=== PATIENT | male | born 1960 | race Caucasian/White ===

== ENCOUNTER 2016-05-12 09:26 | Emergency (ER) | payer OTHER ==
[~2016-05-12] VITALS: Ht 182.9 cm; Wt 126.3 kg
[~2016-05-12 09:26] MED LIST: ABILIFY20 MG PO; ABILIFY5 MG PO; ADVAIR HFA120 INHALA IH; AMLODIPINE BESYL5 MG PO; ASPIR-LOW81 MG PO; ATIVAN1 MG PO; BENZTROPINE MESY2 MG PO; CARDIZEM CD,CA180 MG PO; CLONAZEPAM1 MG; CLONAZEPAM1 MG PO; CLONIDINE HCL0.2 MG PO; DEPAKOTE ER500 MG PO; DEPAKOTE500 MG PO; DIVALPROEX SOD500 M1 PO; DIVALPROEX SOD500 MG PO; FENOFIBRATE54 M1 PO; FUROSEMIDE80 MG PO; GUAIFENESIN WI120 M1 PO; KLONOPIN1 MG PO; LASIX20 MG PO; LASIX40 MG PO; LEVAQUIN750 MG PO; LIPITOR40 MG PO; LISINOPRIL5 MG PO; LITHIUM CARBON300 M2 PO; LOVASTATIN20 MG PO; METFORMIN HCL1000 MG PO; METFORMIN HCL500 MG PO; NICOTINE PATCH1 EAC2 TD; NORVASC5 MG PO; NYSTATIN15 GM TP; OXYCODONE HCL5 M1 PO; OXYCODONE5 MG PO; PAXIL20 MG PO; PAXIL40 MG PO; PREDNISONE10 MG PO; PRINIVIL5 MG PO; PROAIR HFA8.5 GM IH; RISPERDAL4 MG PO; RISPERIDONE4 MG PO; SPIRIVA RESPIMAT4 GM IH; SPIRIVA1 INHALATI IH; WELLBUTRIN SR100 MG PO; WELLBUTRIN100 MG PO; XARELTO20 MG PO; ZESTRIL,PRINIVI10 MG PO; [UNRECOGNIZED DRUG - REMARK]; statin PO
[2016-05-12 09:27] VITALS: BP 148/80
[2016-05-12] MEDS ORDERED: PERCOCET 5/31 TABLET PO (12:35)
== END 2016-05-12 16:57 | disposition home or self-care (01) ==
LOC: EME 09:26
DX: S82.142A Displaced bicondylar fracture of left tibia, initial encounter for closed fracture (principal); W01.198A Fall on same level from slipping, tripping and stumbling with subsequent striking against other object, initial encounter; R05 Cough; J44.9 Chronic obstructive pulmonary disease, unspecified; F17.200 Nicotine dependence, unspecified, uncomplicated
CPT/HCPCS: 71020; 73564; 73700; 99281; 99284

== ENCOUNTER 2016-09-30 00:01 | Emergency (ER) | payer OTHER ==
[~2016-09-30] VITALS: Ht 180.3 cm; Wt 126.2 kg
[~2016-09-30 00:01] MED LIST changes: +PERCOCET 5/31 TABLET PO
[2016-09-30] MEDS ORDERED: NORCO 5/3251 TABLET PO (01:31)
[2016-09-30 02:02] VITALS: BP 126/76
== END 2016-09-30 02:03 | disposition home or self-care (01) ==
LOC: EME 00:01
PROC: 0RSKXZZ Reposition Left Shoulder Joint, External Approach (ICD-10-PCS; principal; 2016-09-30)
DX: S43.005A Unspecified dislocation of left shoulder joint, initial encounter (principal); W06.XXXA Fall from bed, initial encounter; E11.9 Type 2 diabetes mellitus without complications; J44.9 Chronic obstructive pulmonary disease, unspecified; I10 Essential (primary) hypertension; I25.2 Old myocardial infarction; K21.9 Gastro-esophageal reflux disease without esophagitis; Z86.73 Personal history of transient ischemic attack (TIA), and cerebral infarction without residual deficits; F17.200 Nicotine dependence, unspecified, uncomplicated
CPT/HCPCS: 73030; 99281; 99284; J2270; J2405

== ENCOUNTER 2016-10-03 17:35 | Inpatient (IN) | payer OTHER ==
[~2016-10-03] VITALS: Ht 182.9 cm; Wt 131.3 kg
[~2016-10-03 17:35] MED LIST changes: +NORCO 5/3251 TABLET PO
[2016-10-03 18:10] LABS: BASOPHIL COUNT 0.1 K/uL (0-0.1); EOSINOPHIL (%) 1.7 % (0-5); EOSINOPHIL COUNT 0.2 K/uL (0-0.3); HEMATOCRIT 46.7 % (38.0-50.0); IMMATURE GRANULOCYTE (%) 0.4 % (0.0-0.7); INSTRUMENT ABS NEUTROPHIL CT 7.2 K/uL; LYMPHOCYTE COUNT 2.8 K/uL (1.0-2.8); MCH 31.1 PG (29.0-34.0); MCHC 33.8 G/DL (30.0-36.0); MCV 91.9 FL (86-99); MEAN PLAT.VOLUME 9.1 uM^3 (9.0-12.4); MONOCYTE (%) 9.8 % (3-12); MONOCYTE COUNT 1.1 K/uL (0-0.8); NEUTROPHIL (%) 62.9 % (45-76); NEUTROPHIL COUNT 7.2 K/uL (1.8-6.4); PLATELET COUNT 243 K/uL (156-360); RBC DIS.WIDTH-CV 13.3 % (11.8-14.6); RBC DIS.WIDTH-SD 45.2 % (39-53); RED BLOOD COUNT 5.08 M/uL (4.00-5.50); WHITE BLOOD COUNT 11.4 K/uL (4.1-10.2)
[2016-10-03 18:15] LABS: CHLORIDE 102 mEq/L (99-109); POTASSIUM 3.8 mEq/L (3.7-5.4); SODIUM 138 mEq/L (136-147)
[2016-10-03 18:17] LABS: GLUCOSE 200 mg/dL (70-99)
[2016-10-03 18:18] LABS: ANION GAP 15 MEQ/L (2-14)
[2016-10-03 18:20] LABS: GFR ESTIMATE (CALCULATED) > 59 mL/min/; SERUM ETHYL ALCOHOL 259 mg/dL
[2016-10-03 18:21] LABS: UREA NITROGEN (BUN) 14 mg/dL (9-23)
[2016-10-03 18:25] LABS: TROP-I INTERPRETATION NEGATIVE; TROPONIN-I 0.01 ng/mL (0.0-0.30)
[2016-10-03 23:54] VITALS: BP 106/55
[2016-10-04 01:24] LABS: TROP-I INTERPRETATION NEGATIVE; TROPONIN-I 0.01 ng/mL (0.0-0.30)
[2016-10-04 04:34] VITALS: BP 107/58
[2016-10-04 07:45] LABS: HEMATOCRIT 44.7 % (38.0-50.0); MCHC 34.5 G/DL (30.0-36.0); MCV 92.9 FL (86-99); MEAN PLAT.VOLUME 9.6 uM^3 (9.0-12.4); PLATELET COUNT 232 K/uL (156-360); RBC DIS.WIDTH-CV 13.8 % (11.8-14.6); RBC DIS.WIDTH-SD 46.6 % (39-53); RED BLOOD COUNT 4.81 M/uL (4.00-5.50); WHITE BLOOD COUNT 8.4 K/uL (4.1-10.2)
[2016-10-04 07:58] LABS: INTER. NORMALIZED RATIO 1.1; PROTHROMBIN TIME 11.1 (9.2-11.2)
[2016-10-04 08:11] LABS: ALKALINE PHOSPHATASE 78 IU/L (3-129); ANION GAP 6 MEQ/L (2-14); CHLORIDE 108 MEQ/L (99-109); GFR ESTIMATE (CALCULATED) > 59 mL/min/; GLUCOSE 153 mg/dL (70-99); POTASSIUM 4.3 MEQ/L (3.7-5.4); SAMPLE HEMOLYSIS CHECK 0; SAMPLE ICTERIC CHECK 0; SAMPLE LIPEMIA CHECK 0; SODIUM 141 MEQ/L (136-147); TOTAL BILIRUBIN 0.5 MG/DL (0.0-1.0); UREA NITROGEN (BUN) 11 mg/dL (9-23)
[2016-10-04 08:27] VITALS: BP 134/77
[2016-10-04 08:56] LABS: TROP-I INTERPRETATION NEGATIVE; TROPONIN-I 0.01 ng/mL (0.0-0.30)
[2016-10-04] MEDS ORDERED: LISINOPRIL10 MG PO (09:57)
[2016-10-04] MEDS ORDERED: PROZAC40 MG PO (09:58)
[2016-10-04] MEDS ORDERED: DESYREL100 MG PO (09:59)
[2016-10-04 11:22] VITALS: BP 151/67
[2016-10-04 15:14] VITALS: BP 141/79
[2016-10-04] MEDS ORDERED: SPIRIVA RESPIMAT4 GM IH (16:59)
[2016-10-04] MEDS ORDERED: PROAIR HFA8.5 GM IH (17:00)
[2016-10-04 19:15] VITALS: BP 151/83
[2016-10-04 23:00] VITALS: BP 130/75
[2016-10-05 03:30] VITALS: BP 138/88
[2016-10-05 05:54] LABS: ANION GAP 10 MEQ/L (2-14); CHLORIDE 105 MEQ/L (99-109); GFR ESTIMATE (CALCULATED) > 59 mL/min/; GLUCOSE 139 mg/dL (70-99); MAGNESIUM 1.9 mg/dl (1.3-2.7); POTASSIUM 3.9 MEQ/L (3.7-5.4); SAMPLE HEMOLYSIS CHECK 0; SAMPLE ICTERIC CHECK 0; SAMPLE LIPEMIA CHECK 0; SODIUM 140 MEQ/L (136-147); UREA NITROGEN (BUN) 9 mg/dL (9-23)
[2016-10-05 08:17] VITALS: BP 176/97
[2016-10-05 11:37] VITALS: BP 126/72
[2016-10-05] MEDS ORDERED: THERAGRAN1 TABLET PO (13:17)
[2016-10-05] MEDS ORDERED: FOLIC ACID1 MG PO (13:17)
[2016-10-05] MEDS ORDERED: Thiamine,Vitamin B1 PO (13:19)
[2016-10-05] MEDS ORDERED: XARELTO20 MG PO (13:19)
[2016-10-05] MEDS ORDERED: LISINOPRIL2.5 MG PO (13:33)
[2016-10-05] MEDS ORDERED: CARDIZEM30 MG PO (13:34)
== END 2016-10-05 16:51 | disposition home or self-care (01) | DRG 309 ==
LOC: EME 17:35 → 4EAST 22:11 → EDOF 22:11 → 4EAST 23:22
PROVIDERS: Emergency Medicine; Internal Medicine; Internal Medicine Cardiovascular Disease
PROC: HZ2ZZZZ Detoxification Services for Substance Abuse Treatment (ICD-10-PCS; 2016-10-03)
PROC: 5A2204Z Restoration of Cardiac Rhythm, Single (ICD-10-PCS; principal; 2016-10-05)
DX: I47.1 Supraventricular tachycardia (principal); R45.851 Suicidal ideations; I50.32 Chronic diastolic (congestive) heart failure; J44.1 Chronic obstructive pulmonary disease with (acute) exacerbation; F31.30 Bipolar disorder, current episode depressed, mild or moderate severity, unspecified; I48.92 Unspecified atrial flutter; I48.91 Unspecified atrial fibrillation; F10.229 Alcohol dependence with intoxication, unspecified; Y90.8 Blood alcohol level of 240 mg/100 ml or more; E11.9 Type 2 diabetes mellitus without complications; F17.210 Nicotine dependence, cigarettes, uncomplicated; F31.9 Bipolar disorder, unspecified; F41.9 Anxiety disorder, unspecified; F60.9 Personality disorder, unspecified; Z60.2 Problems related to living alone; G89.4 Chronic pain syndrome; I11.0 Hypertensive heart disease with heart failure; I25.10 Atherosclerotic heart disease of native coronary artery without angina pectoris; K21.9 Gastro-esophageal reflux disease without esophagitis; E66.9 Obesity, unspecified; I36.1 Nonrheumatic tricuspid (valve) insufficiency; I35.1 Nonrheumatic aortic (valve) insufficiency; I34.0 Nonrheumatic mitral (valve) insufficiency; S43.015A Anterior dislocation of left humerus, initial encounter; W19.XXXA Unspecified fall, initial encounter; Y92.89 Other specified places as the place of occurrence of the external cause; Z91.19 Patient's noncompliance with other medical treatment and regimen; Z91.14 Patient's other noncompliance with medication regimen; Z68.39 Body mass index [BMI] 39.0-39.9, adult; I25.2 Old myocardial infarction; Z91.81 History of falling
CPT/HCPCS: 71010; 80048; 80048 91; 80053; 83735; 83880; 84484; 85025; 85027; 85610; 93005; 93306; 94640; 94640 76; 94799; 99202; G0480; J0153; J2060; J2250; J3475; J7030; J7042; J7050

== ENCOUNTER 2016-12-06 23:43 | Inpatient (IN) | payer OTHER ==
[~2016-12-06] VITALS: Ht 182.9 cm; Wt 129.2 kg
[~2016-12-06 23:43] MED LIST changes: +CARDIZEM30 MG PO; +DESYREL100 MG PO; +FOLIC ACID1 MG PO; +LISINOPRIL10 MG PO; +LISINOPRIL2.5 MG PO; +PROZAC40 MG PO; +THERAGRAN1 TABLET PO; +Thiamine,Vitamin B1 PO
[2016-12-07 00:28] LABS: EOSINOPHIL (%) 3.1 % (0-5); EOSINOPHIL COUNT 0.3 K/uL (0-0.3); HEMATOCRIT 43.9 % (38.0-50.0); IMMATURE GRANULOCYTE (%) 0.6 % (0.0-0.7); IMMATURE GRANULOCYTE COUNT 0.1 K/uL; INSTRUMENT ABS NEUTROPHIL CT 4.7 K/uL; LYMPHOCYTE COUNT 2.3 K/uL (1.0-2.8); MCH 31.3 PG (29.0-34.0); MCHC 34.4 G/DL (30.0-36.0); MCV 91.1 FL (86-99); MEAN PLAT.VOLUME 9.4 uM^3 (9.0-12.4); MONOCYTE (%) 10.1 % (3-12); MONOCYTE COUNT 0.8 K/uL (0-0.8); NEUTROPHIL (%) 57.3 % (45-76); NEUTROPHIL COUNT 4.7 K/uL (1.8-6.4); PLATELET COUNT 211 K/uL (156-360); RBC DIS.WIDTH-CV 13.4 % (11.8-14.6); RBC DIS.WIDTH-SD 45.1 % (39-53); RED BLOOD COUNT 4.82 M/uL (4.00-5.50); WHITE BLOOD COUNT 8.2 K/uL (4.1-10.2)
[2016-12-07 01:00] LABS: CHLORIDE 101 mEq/L (99-109); POTASSIUM 4.2 mEq/L (3.7-5.4); SODIUM 136 mEq/L (136-147)
[2016-12-07 01:02] LABS: GLUCOSE 201 mg/dL (70-99)
[2016-12-07 01:03] LABS: ANION GAP 16 MEQ/L (2-14)
[2016-12-07 01:06] LABS: GFR ESTIMATE (CALCULATED) > 59 mL/min/
[2016-12-07 01:07] LABS: UREA NITROGEN (BUN) 11 mg/dL (9-23)
[2016-12-07 01:10] LABS: TROP-I INTERPRETATION NEGATIVE; TROPONIN-I 0.02 ng/mL (0.0-0.30)
[2016-12-07] MEDS ORDERED: AMBIEN10 MG PO (05:03)
[2016-12-07 06:58] LABS: INTER. NORMALIZED RATIO 1.1; PROTHROMBIN TIME 11.9 SEC (10.2-12.9)
[2016-12-07 07:00] LABS: PTT 29.2 SEC (25-37)
[2016-12-07 07:51] LABS: TROP-I INTERPRETATION NEGATIVE; TROPONIN-I 0.03 ng/mL (0.0-0.30)
[2016-12-07 08:46] VITALS: BP 154/74
[2016-12-07] MEDS ORDERED: GLUCOPHAGE500 MG PO (09:15)
[2016-12-07 11:42] VITALS: BP 145/69
[2016-12-07 16:58] VITALS: BP 138/86
[2016-12-07 19:23] VITALS: BP 144/67
[2016-12-08] VITALS: BP 164/74
[2016-12-08 05:02] VITALS: BP 169/76
[2016-12-08 06:56] LABS: HEMATOCRIT 47.3 % (38.0-50.0); MCH 31.7 PG (29.0-34.0); MCV 93.1 FL (86-99); MEAN PLAT.VOLUME 9.7 uM^3 (9.0-12.4); PLATELET COUNT 209 K/uL (156-360); RBC DIS.WIDTH-CV 13.4 % (11.8-14.6); RED BLOOD COUNT 5.08 M/uL (4.00-5.50); WHITE BLOOD COUNT 12.7 K/uL (4.1-10.2)
[2016-12-08 07:23] LABS: TROP-I INTERPRETATION NEGATIVE; TROPONIN-I 0.01 ng/mL (0.0-0.30)
[2016-12-08 07:24] LABS: ANION GAP 9 MEQ/L (2-14); CHLORIDE 100 MEQ/L (99-109); GFR ESTIMATE (CALCULATED) > 59 mL/min/; GLUCOSE 245 mg/dL (70-99); SAMPLE HEMOLYSIS CHECK 0; SAMPLE ICTERIC CHECK 0; SAMPLE LIPEMIA CHECK 0; SODIUM 136 MEQ/L (136-147); UREA NITROGEN (BUN) 15 mg/dL (9-23)
[2016-12-08 07:25] LABS: POTASSIUM 5.4 MEQ/L (3.7-5.4)
[2016-12-08 07:30] VITALS: BP 166/74
[2016-12-08 09:55] LABS: ALKALINE PHOSPHATASE 76 IU/L (3-129); DIRECT BILIRUBIN 0.1 mg/dL (0.0-0.3); TOTAL BILIRUBIN 0.5 MG/DL (0.0-1.0)
[2016-12-08 11:47] VITALS: BP 169/73
[2016-12-08 15:00] VITALS: BP 143/69
[2016-12-08 20:50] VITALS: BP 142/68
[2016-12-09] VITALS (7 sets, daily range): BP systolic 124–161; BP diastolic 61–81
[2016-12-09 06:21] LABS: HEMATOCRIT 44.9 % (38.0-50.0); MCH 31.8 PG (29.0-34.0); MCHC 34.3 G/DL (30.0-36.0); MCV 92.8 FL (86-99); MEAN PLAT.VOLUME 9.8 uM^3 (9.0-12.4); PLATELET COUNT 209 K/uL (156-360); RBC DIS.WIDTH-CV 13.7 % (11.8-14.6); RBC DIS.WIDTH-SD 46.3 % (39-53); RED BLOOD COUNT 4.84 M/uL (4.00-5.50); WHITE BLOOD COUNT 16.3 K/uL (4.1-10.2)
[2016-12-09 06:42] LABS: ANION GAP 11 MEQ/L (2-14); CHLORIDE 100 MEQ/L (99-109); GFR ESTIMATE (CALCULATED) > 59 mL/min/; GLUCOSE 248 mg/dL (70-99); POTASSIUM 4.6 MEQ/L (3.7-5.4); SAMPLE HEMOLYSIS CHECK 0; SAMPLE ICTERIC CHECK 0; SAMPLE LIPEMIA CHECK 0; SODIUM 136 MEQ/L (136-147); UREA NITROGEN (BUN) 21 mg/dL (9-23)
[2016-12-09] MEDS ORDERED: LEVALBUTER1.25 MG/0. IH (08:48)
[2016-12-09] MEDS ORDERED: SPIRIVA1 INHALATI IH (08:48)
[2016-12-09] MEDS ORDERED: ADVAIR HFA120 INHALA IH (08:52)
[2016-12-09 11:52] LABS: POINT-OF-CARE METER ID UU13113698
[2016-12-09 14:43] LABS: Estimated Average Glucose 163 mg/dL (70-123); HEMOGLOBIN A1c (GLYCOHEMOGLOB) 7.3 % HGB (Below 5.7)
[2016-12-09 16:20] LABS: POINT-OF-CARE METER ID UU13113698
[2016-12-10 05:03] VITALS: BP 120/60
[2016-12-10 06:09] LABS: HEMATOCRIT 44.9 % (38.0-50.0); MCH 32.2 PG (29.0-34.0); MCHC 34.3 G/DL (30.0-36.0); MCV 93.7 FL (86-99); MEAN PLAT.VOLUME 9.7 uM^3 (9.0-12.4); PLATELET COUNT 185 K/uL (156-360); RBC DIS.WIDTH-CV 14.1 % (11.8-14.6); RBC DIS.WIDTH-SD 48.5 % (39-53); RED BLOOD COUNT 4.79 M/uL (4.00-5.50); WHITE BLOOD COUNT 14.7 K/uL (4.1-10.2)
[2016-12-10] MEDS ORDERED: PREDNISONE20 MG PO (08:41)
[2016-12-10] MEDS ORDERED: LIDOCAINE1 EACH TD (08:41)
[2016-12-10] MEDS ORDERED: NAPROXEN500 MG PO (08:41)
[2016-12-10] MEDS ORDERED: GABAPENTIN300 MG PO (08:41)
[2016-12-10] MEDS ORDERED: LISINOPRIL20 MG PO (08:41)
[2016-12-10] MEDS ORDERED: DILTIAZEM 24HR120 MG PO (08:41)
[2016-12-10] MEDS ORDERED: CHLORDIAZEPOXID25 MG PO (08:41)
[2016-12-10] MEDS ORDERED: CEFDINIR300 MG PO (08:41)
[2016-12-10 09:00] VITALS: BP 135/62
[2016-12-10 12:00] VITALS: BP 148/68
== END 2016-12-10 14:01 | disposition home or self-care (01) | DRG 191 ==
LOC: EME → EDBD 23:43 → EME 23:43 → 4EAST 12-07 06:29 → EDOF 12-07 06:29 → ENRESERV 12-07 06:32 → 4EAST 12-07 08:15
PROVIDERS: Emergency Medicine; Hospitalist; Internal Medicine
DX: J44.0 Chronic obstructive pulmonary disease with (acute) lower respiratory infection (principal); I47.1 Supraventricular tachycardia; E66.01 Morbid (severe) obesity due to excess calories; I48.0 Paroxysmal atrial fibrillation; I95.9 Hypotension, unspecified; I11.0 Hypertensive heart disease with heart failure; I50.9 Heart failure, unspecified; F31.9 Bipolar disorder, unspecified; E11.9 Type 2 diabetes mellitus without complications; F10.239 Alcohol dependence with withdrawal, unspecified; F17.210 Nicotine dependence, cigarettes, uncomplicated; J20.9 Acute bronchitis, unspecified; F10.20 Alcohol dependence, uncomplicated; K21.9 Gastro-esophageal reflux disease without esophagitis; F41.9 Anxiety disorder, unspecified; G89.4 Chronic pain syndrome; J98.11 Atelectasis; G47.30 Sleep apnea, unspecified; M47.816 Spondylosis without myelopathy or radiculopathy, lumbar region; Z99.81 Dependence on supplemental oxygen; I25.2 Old myocardial infarction; Z68.39 Body mass index [BMI] 39.0-39.9, adult; Z79.899 Other long term (current) drug therapy; Z91.81 History of falling
CPT/HCPCS: 71010; 71020; 80048; 80076; 82948; 83036; 83880; 84484; 85025; 85027; 85610; 85730; 93005; 94640; 94640 76; 94760; 94799; 99202; 99281; 99285; J0153; J0696; J1650; J1815; J2060; J2920; J3475; J7030; J7050; J7512; S0028

== ENCOUNTER 2017-01-27 21:04 | Emergency (ER) | payer OTHER ==
[~2017-01-27] VITALS: Ht 182.9 cm; Wt 124.4 kg
[~2017-01-27 21:04] MED LIST changes: +AMBIEN10 MG PO; +CEFDINIR300 MG PO; +CHLORDIAZEPOXID25 MG PO; +DILTIAZEM 24HR120 MG PO; +GABAPENTIN300 MG PO; +GLUCOPHAGE500 MG PO; +LEVALBUTER1.25 MG/0. IH; +LIDOCAINE1 EACH TD; +LISINOPRIL20 MG PO; +NAPROXEN500 MG PO; +PREDNISONE20 MG PO
[2017-01-27] MEDS ORDERED: NORCO 5/3251 TABLET PO (22:37)
[2017-01-27 23:19] VITALS: BP 159/61
== END 2017-01-27 23:56 | disposition home or self-care (01) ==
LOC: EME → EDBD 21:04 → EME 23:56
PROC: 0RSKXZZ Reposition Left Shoulder Joint, External Approach (ICD-10-PCS; principal; 2017-01-27)
DX: S43.015A Anterior dislocation of left humerus, initial encounter (principal); W01.198A Fall on same level from slipping, tripping and stumbling with subsequent striking against other object, initial encounter; I25.2 Old myocardial infarction; K21.9 Gastro-esophageal reflux disease without esophagitis; J44.9 Chronic obstructive pulmonary disease, unspecified; F41.9 Anxiety disorder, unspecified; I10 Essential (primary) hypertension; E11.9 Type 2 diabetes mellitus without complications; F31.9 Bipolar disorder, unspecified; Z79.84 Long term (current) use of oral hypoglycemic drugs; F17.200 Nicotine dependence, unspecified, uncomplicated; E78.5 Hyperlipidemia, unspecified
CPT/HCPCS: 73020; 73030; 99281; 99285; J1885; S0028

== ENCOUNTER 2017-09-08 19:35 | Inpatient (IN) | payer OTHER ==
[~2017-09-08] VITALS: Ht 182.9 cm; Wt 130.6 kg
[2017-09-08 20:04] LABS: BASE EXCESS -2.9 mEq/L (-3 to +3); BICARBONATE 22.6 mEq/L (22-26); CARBOXY HGB 5.2 % (0-5); COMMENTS - BLOOD GASES C+; DEVICE NC; METHEMOGLOBIN 0.3 % (0-1.5); O2 FLOW 2.5 L/MIN; PCO2 41 mm Hg (35-45); PO2 88 mm Hg (80-100); SITE RR; TOTAL RESP RATE 20 resp/min; pH 7.35 (7.35-7.45)
[2017-09-08 20:11] LABS: HEMATOCRIT 43.9 % (38.0-50.0); HEMOGLOBIN 14.8 G/DL (12.5-16.6); MCH 31.2 PG (29.0-34.0); MCHC 33.7 G/DL (30.0-36.0); MCV 92.6 FL (86-99); PLATELET COUNT 201 K/uL (156-360); RBC DIS.WIDTH-CV 14.5 % (11.8-14.6); RED BLOOD COUNT 4.74 M/uL (4.00-5.50); WHITE BLOOD COUNT 8.2 K/uL (4.1-10.2)
[2017-09-08 20:19] LABS: ALBUMIN 3.8 g/dL (3.2-4.8); CHLORIDE 101 mEq/L (99-109); POTASSIUM 4.1 mEq/L (3.7-5.4); SODIUM 137 mEq/L (136-147)
[2017-09-08 20:20] LABS: PTT 30.1 SEC (25-37)
[2017-09-08 20:21] LABS: GLUCOSE 210 mg/dL (70-99); TOTAL PROTEIN 6.6 g/dL (6.4-8.3)
[2017-09-08 20:23] LABS: TOTAL BILIRUBIN 0.2 mg/dL (0.0-1.0)
[2017-09-08 20:24] LABS: SERUM ETHYL ALCOHOL 30 mg/dL
[2017-09-08 20:25] LABS: ALKALINE PHOSPHATASE 79 IU/L (3-129); GFR ESTIMATE (CALCULATED) > 59 mL/min/ (58.99-99999)
[2017-09-08 20:26] LABS: UREA NITROGEN (BUN) 17 mg/dL (9-23)
[2017-09-08 20:27] LABS: AST (GOT) 19 IU/L (2-34)
[2017-09-08 20:28] LABS: ALT (GPT) 23 IU/L (3-49)
[2017-09-08 20:31] LABS: TROP-I INTERPRETATION NEGATIVE; TROPONIN-I < 0.01 ng/mL (0.0-0.30)
[2017-09-08] MEDS ORDERED: XOPENEX0.31 MG/3 IH (22:11)
[2017-09-08] MEDS ORDERED: ZESTRIL20 MG PO (22:12)
[2017-09-08] MEDS ORDERED: SPIRIVA18 MCG IH (22:13)
[2017-09-08] MEDS ORDERED: INHALER (22:14)
[2017-09-08] MEDS ORDERED: LO-DOSE ASPIRIN81 M1 PO (22:14)
[2017-09-09] VITALS (7 sets, daily range): BP systolic 117–177; BP diastolic 61–80
[2017-09-09 05:31] LABS: TROP-I INTERPRETATION NEGATIVE; TROPONIN-I 0.03 ng/mL (0.0-0.30)
[2017-09-09 09:21] LABS: HEMATOCRIT 45.5 % (38.0-50.0); HEMOGLOBIN 14.9 G/DL (12.5-16.6); MCH 30.2 PG (29.0-34.0); MCHC 32.7 G/DL (30.0-36.0); MCV 92.1 FL (86-99); PLATELET COUNT 202 K/uL (156-360); RBC DIS.WIDTH-CV 14.3 % (11.8-14.6); RED BLOOD COUNT 4.94 M/uL (4.00-5.50); WHITE BLOOD COUNT 8.5 K/uL (4.1-10.2)
[2017-09-09 09:48] LABS: TROP-I INTERPRETATION NEGATIVE; TROPONIN-I 0.02 ng/mL (0.0-0.30)
[2017-09-09 10:01] LABS: ALBUMIN 3.8 G/DL (3.2-4.8); ALKALINE PHOSPHATASE 66 IU/L (3-129); ALT (GPT) 22 IU/L (3-49); AST (GOT) 14 IU/L (2-34); CHLORIDE 103 MEQ/L (99-109); CREATININE 0.9 MG/DL (0.6-1.3); GFR ESTIMATE (CALCULATED) > 59 mL/min/ (58.99-99999); GLUCOSE 276 mg/dL (70-99); POTASSIUM 4.9 MEQ/L (3.7-5.4); SODIUM 134 MEQ/L (136-147); TOTAL BILIRUBIN 0.3 MG/DL (0.0-1.0); TOTAL PROTEIN 6.7 G/DL (6.4-8.3); UREA NITROGEN (BUN) 19 mg/dL (9-23)
[2017-09-09 12:32] LABS: HEMOGLOBIN A1c (GLYCOHEMOGLOB) 7.2 % (Below 5.7)
[2017-09-10 04:49] VITALS: BP 125/58
[2017-09-10 05:24] LABS: BASOPHIL (%) 0.1 % (0-1); EOSINOPHIL (%) 0 % (0-5); HEMATOCRIT 43.2 % (38.0-50.0); HEMOGLOBIN 14.1 G/DL (12.5-16.6); IMMATURE GRANULOCYTE (%) 0.9 % (0.0-0.7); LYMPHOCYTE (%) 5.1 % (15-42); LYMPHOCYTE COUNT 0.8 K/uL (1.0-2.8); MCH 30.2 PG (29.0-34.0); MCHC 32.6 G/DL (30.0-36.0); MCV 92.5 FL (86-99); MONOCYTE (%) 3.7 % (3-12); MONOCYTE COUNT 0.6 K/uL (0-0.8); NEUTROPHIL (%) 90.2 % (45-76); NEUTROPHIL COUNT 14.9 K/uL (1.8-6.4); PLATELET COUNT 194 K/uL (156-360); RBC DIS.WIDTH-CV 14.5 % (11.8-14.6); RBC DIS.WIDTH-SD 48.4 % (39-53); RED BLOOD COUNT 4.67 M/uL (4.00-5.50); WHITE BLOOD COUNT 16.5 K/uL (4.1-10.2)
[2017-09-10 05:47] LABS: CHLORIDE 104 MEQ/L (99-109); CREATININE 0.9 MG/DL (0.6-1.3); GFR ESTIMATE (CALCULATED) > 59 mL/min/ (58.99-99999); GLUCOSE 292 mg/dL (70-99); POTASSIUM 4.8 MEQ/L (3.7-5.4); SODIUM 135 MEQ/L (136-147); UREA NITROGEN (BUN) 19 mg/dL (9-23)
[2017-09-10 07:23] VITALS: BP 124/67
[2017-09-10] MEDS ORDERED: PREDNISONE20 MG PO (11:23)
[2017-09-10] MEDS ORDERED: LEVOFLOXACIN750 MG PO (11:23)
[2017-09-10] MEDS ORDERED: FOLIC ACID1 MG PO (11:28)
[2017-09-10] MEDS ORDERED: METFORMIN HCL1000 MG PO (11:28)
[2017-09-10] MEDS ORDERED: NICOTINE PATCH1 EAC1 TD (11:29)
[2017-09-10] MEDS ORDERED: VITAMIN B-1100 MG PO (11:29)
== END 2017-09-10 14:48 | disposition home or self-care (01) | DRG 193 ==
LOC: EME → EDBD 19:35 → EME 19:35 → EDOF 22:50 → 4EAST 22:50 → ENRESERV 22:54 → 4EAST 09-09 00:05
PROVIDERS: Emergency Medicine; Internal Medicine
DX: J18.9 Pneumonia, unspecified organism (principal); J44.0 Chronic obstructive pulmonary disease with (acute) lower respiratory infection; J44.1 Chronic obstructive pulmonary disease with (acute) exacerbation; J96.01 Acute respiratory failure with hypoxia; E87.2 Acidosis; E11.9 Type 2 diabetes mellitus without complications; E78.00 Pure hypercholesterolemia, unspecified; F17.210 Nicotine dependence, cigarettes, uncomplicated; G47.30 Sleep apnea, unspecified; G89.29 Other chronic pain; I10 Essential (primary) hypertension; I25.10 Atherosclerotic heart disease of native coronary artery without angina pectoris; I25.2 Old myocardial infarction; I47.1 Supraventricular tachycardia; M54.2 Cervicalgia; K21.9 Gastro-esophageal reflux disease without esophagitis; M75.122 Complete rotator cuff tear or rupture of left shoulder, not specified as traumatic; F32.9 Major depressive disorder, single episode, unspecified; F41.9 Anxiety disorder, unspecified; F10.10 Alcohol abuse, uncomplicated; E66.01 Morbid (severe) obesity due to excess calories; Z68.39 Body mass index [BMI] 39.0-39.9, adult; Z80.0 Family history of malignant neoplasm of digestive organs
CPT/HCPCS: 36600; 71046; 71250; 73030; 73221; 80048; 80053; 82803; 82948; 83036; 83605; 83880; 84484; 85025; 85027; 85610; 85730; 87040; 87070; 87205; 87449; 93005; 94640; 94640 76; 94799; 99202; 99281; 99285; G0480; J1644; J1815; J1956; J2930; J7030; J7512

== ENCOUNTER 2017-12-17 13:54 | Inpatient (IN) | payer OTHER ==
[~2017-12-17] VITALS: Ht 182.9 cm; Wt 133.0 kg
[~2017-12-17 13:54] MED LIST changes: +INHALER; +LEVOFLOXACIN750 MG PO; +LO-DOSE ASPIRIN81 M1 PO; +NICOTINE PATCH1 EAC1 TD; +SPIRIVA18 MCG IH; +VITAMIN B-1100 MG PO; +XOPENEX0.31 MG/3 IH; +ZESTRIL20 MG PO
[2017-12-17 14:41] LABS: HEMATOCRIT 43.4 % (38.0-50.0); MCH 30.2 PG (29.0-34.0); MCHC 32.3 G/DL (30.0-36.0); MCV 93.5 FL (86-99); PLATELET COUNT 164 K/uL (156-360); RBC DIS.WIDTH-CV 14.6 % (11.8-14.6); RBC DIS.WIDTH-SD 50.1 % (39-53); RED BLOOD COUNT 4.64 M/uL (4.00-5.50); WHITE BLOOD COUNT 13.6 K/uL (4.1-10.2)
[2017-12-17 14:45] LABS: INTER. NORMALIZED RATIO 1.2
[2017-12-17 14:48] LABS: PTT 29.4 SEC (25-37)
[2017-12-17 15:48] LABS: ALBUMIN 4.1 g/dL (3.2-4.8)
[2017-12-17 15:49] LABS: CHLORIDE 97 mEq/L (99-109); POTASSIUM 4.5 mEq/L (3.7-5.4); SODIUM 137 mEq/L (136-147)
[2017-12-17 15:51] LABS: GLUCOSE 125 mg/dL (70-99)
[2017-12-17 15:53] LABS: TOTAL BILIRUBIN 0.6 mg/dL (0.0-1.0)
[2017-12-17 15:54] LABS: ALKALINE PHOSPHATASE 100 IU/L (3-129)
[2017-12-17 15:55] LABS: GFR ESTIMATE (CALCULATED) > 59 mL/min/ (58.99-99999)
[2017-12-17 15:56] LABS: AST (GOT) 20 IU/L (2-34); UREA NITROGEN (BUN) 15 mg/dL (9-23)
[2017-12-17 15:58] LABS: ALT (GPT) 23 IU/L (3-49)
[2017-12-17] MEDS ORDERED: POTASSIUM CHLO10 ME4 PO (17:15)
[2017-12-17] MEDS ORDERED: ALBUTEROL2.5 MG/3 M IH (17:16)
[2017-12-17] MEDS ORDERED: FUROSEMIDE20 MG PO (17:17)
[2017-12-17] MEDS ORDERED: ADVAIR HFA120 INHAL1 IH (17:17)
[2017-12-17] MEDS ORDERED: FLUOXETINE HCL40 MG PO (17:18)
[2017-12-17] MEDS ORDERED: VRAYLAR4.5 MG PO (17:21)
[2017-12-17] MEDS ORDERED: TRAZODONE HCL50 MG PO (17:21)
[2017-12-17] MEDS ORDERED: VENTOLIN HFA18 GM IH (17:22)
[2017-12-17] MEDS ORDERED: SPIRIVA RESPIMAT4 GM IH (17:23)
[2017-12-17] MEDS ORDERED: METFORMIN HCL500 MG PO (17:24)
[2017-12-17] MEDS ORDERED: LISINOPRIL10 MG PO (17:26)
[2017-12-17 17:55] VITALS: BP 128/79
[2017-12-17 18:46] LABS: TROP-I INTERPRETATION NEGATIVE; TROPONIN-I < 0.01 ng/mL (0.0-0.30)
[2017-12-17 19:38] VITALS: BP 131/103
[2017-12-17 23:35] LABS: TROP-I INTERPRETATION NEGATIVE; TROPONIN-I 0.01 ng/mL (0.0-0.30)
[2017-12-18] VITALS (7 sets, daily range): BP systolic 111–133; BP diastolic 58–73
[2017-12-18 07:01] LABS: HEMATOCRIT 42.7 % (38.0-50.0); HEMOGLOBIN 13.6 G/DL (12.5-16.6); MCH 29.5 PG (29.0-34.0); MCHC 31.9 G/DL (30.0-36.0); MCV 92.6 FL (86-99); PLATELET COUNT 155 K/uL (156-360); RBC DIS.WIDTH-CV 14.5 % (11.8-14.6); RBC DIS.WIDTH-SD 48.6 % (39-53); RED BLOOD COUNT 4.61 M/uL (4.00-5.50); WHITE BLOOD COUNT 13.2 K/uL (4.1-10.2)
[2017-12-18 07:17] LABS: ALBUMIN 3.7 G/DL (3.2-4.8); ALKALINE PHOSPHATASE 62 IU/L (3-129); ALT (GPT) 16 IU/L (3-49); AST (GOT) 16 IU/L (2-34); CHLORIDE 101 MEQ/L (99-109); CREATININE 0.9 MG/DL (0.6-1.3); GFR ESTIMATE (CALCULATED) > 59 mL/min/ (58.99-99999); GLUCOSE 143 mg/dL (70-99); POTASSIUM 4.7 MEQ/L (3.7-5.4); SODIUM 134 MEQ/L (136-147); TOTAL BILIRUBIN 0.8 MG/DL (0.0-1.0); TOTAL PROTEIN 5.8 G/DL (6.4-8.3); UREA NITROGEN (BUN) 14 mg/dL (9-23)
[2017-12-19 03:14] LABS: HEMATOCRIT 39.8 % (38.0-50.0); HEMOGLOBIN 13.1 G/DL (12.5-16.6); MCH 30.3 PG (29.0-34.0); MCHC 32.9 G/DL (30.0-36.0); MCV 91.9 FL (86-99); PLATELET COUNT 150 K/uL (156-360); RBC DIS.WIDTH-CV 14.4 % (11.8-14.6); RBC DIS.WIDTH-SD 48.7 % (39-53); RED BLOOD COUNT 4.33 M/uL (4.00-5.50)
[2017-12-19 03:23] LABS: CHLORIDE 101 mEq/L (99-109); SODIUM 136 mEq/L (136-147)
[2017-12-19 03:24] LABS: GLUCOSE 154 mg/dL (70-99)
[2017-12-19 03:28] LABS: CREATININE 0.8 mg/dL (0.6-1.3); GFR ESTIMATE (CALCULATED) > 59 mL/min/ (58.99-99999)
[2017-12-19 03:29] LABS: UREA NITROGEN (BUN) 16 mg/dL (9-23)
[2017-12-19 04:54] VITALS: BP 122/60
[2017-12-19 07:34] VITALS: BP 102/59
[2017-12-19 11:32] VITALS: BP 121/62
[2017-12-19 16:12] VITALS: BP 122/64
[2017-12-19 19:17] VITALS: BP 119/63
[2017-12-19 23:10] VITALS: BP 121/69
[2017-12-20 03:50] VITALS: BP 133/74
[2017-12-20 07:20] VITALS: BP 130/72
[2017-12-20 11:50] VITALS: BP 121/87
[2017-12-20 16:14] VITALS: BP 124/67
[2017-12-20 19:33] VITALS: BP 136/65
[2017-12-20 23:38] VITALS: BP 122/57
[2017-12-21 03:22] VITALS: BP 128/61
[2017-12-21 05:39] LABS: HEMATOCRIT 39.6 % (38.0-50.0); HEMOGLOBIN 12.9 G/DL (12.5-16.6); MCH 29.6 PG (29.0-34.0); MCHC 32.6 G/DL (30.0-36.0); MCV 90.8 FL (86-99); NRBC (%) 0.2 /100 WBC (0-0); PLATELET COUNT 174 K/uL (156-360); RBC DIS.WIDTH-CV 14.3 % (11.8-14.6); RBC DIS.WIDTH-SD 47.8 % (39-53); RED BLOOD COUNT 4.36 M/uL (4.00-5.50)
[2017-12-21 06:14] LABS: CHLORIDE 98 MEQ/L (99-109); CREATININE 0.8 MG/DL (0.6-1.3); GFR ESTIMATE (CALCULATED) > 59 mL/min/ (58.99-99999); GLUCOSE 173 mg/dL (70-99); MAGNESIUM 2.1 mg/dl (1.3-2.7); POTASSIUM 4.2 MEQ/L (3.7-5.4); SODIUM 136 MEQ/L (136-147); UREA NITROGEN (BUN) 12 mg/dL (9-23)
[2017-12-21 07:45] VITALS: BP 134/66
[2017-12-21] MEDS ORDERED: CARDIZEM CD,CA180 MG PO (11:09)
[2017-12-21] MEDS ORDERED: FUROSEMIDE40 MG PO (11:09)
[2017-12-21] MEDS ORDERED: DURICEF500 MG PO (11:09)
[2017-12-21] MEDS ORDERED: GABAPENTIN300 MG PO (11:09)
[2017-12-21 11:53] VITALS: BP 119/57
== END 2017-12-21 13:51 | disposition home health service (06) | DRG 309 ==
LOC: EME 13:54 → 4EAST 16:15 → EDOF 16:15 → ENRESERV 16:17 → 4EAST 17:40
PROVIDERS: Emergency Medicine; Hospitalist; Internal Medicine
DX: I48.0 Paroxysmal atrial fibrillation (principal); L03.116 Cellulitis of left lower limb; L03.115 Cellulitis of right lower limb; E11.621 Type 2 diabetes mellitus with foot ulcer; L97.529 Non-pressure chronic ulcer of other part of left foot with unspecified severity; I50.32 Chronic diastolic (congestive) heart failure; J44.9 Chronic obstructive pulmonary disease, unspecified; F17.200 Nicotine dependence, unspecified, uncomplicated; G89.29 Other chronic pain; M54.5 Low back pain; F41.9 Anxiety disorder, unspecified; F32.9 Major depressive disorder, single episode, unspecified; I95.2 Hypotension due to drugs; T46.1X5A Adverse effect of calcium-channel blockers, initial encounter; I87.2 Venous insufficiency (chronic) (peripheral); E87.2 Acidosis; E66.9 Obesity, unspecified; F12.90 Cannabis use, unspecified, uncomplicated; L40.9 Psoriasis, unspecified; F10.20 Alcohol dependence, uncomplicated; Z91.19 Patient's noncompliance with other medical treatment and regimen; Z68.41 Body mass index [BMI] 40.0-44.9, adult
CPT/HCPCS: 71046; 73630; 80048; 80053; 80202; 82948; 83605; 83735; 83880; 84484; 85027; 85610; 85730; 87040; 93005; 93306; 93970; 94640; 94799; 99281; 99285; A6212; J0690; J1160; J1650; J1815; J1940; J1956; J2270; J3370; J7030; J7050